=== PATIENT | male | born 1960 | race Caucasian/White ===

== ENCOUNTER 2019-12-14 15:01 | Emergency (ER) | payer OTHER ==
[2019-12-14] MEDS ORDERED: Bacitracin Oint 1 GM U/D Packet TOP ONE (15:55)
--- NOTE | 2019-12-14 16:00 | EDM.PDOC ---
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 He has a deep laceration extending along the dorsal aspect of the hand between the fourth and fifth metacarpal. There is also a small puncture 1 cm wide on the palmar surface of the webspace between the fourth and fifth finger. No other injury. He has no bony tenderness or distal paresthesias of the fingers. Onset: Sudden Duration: Hour(s): (Within the last hour) Location: Reports: Upper Extremity, Left Associated Symptoms: Reports: No Other Symptoms - Related Data Allergies Allergy/AdvReac Type Severity Reaction Status Date / Time No Known Allergies Allergy Verified 12/14/19 15:14 Home Meds: Home Meds NK [No Known Home Meds] 12/14/19 [History] Past Medical History HEENT History: Reports: Impaired Vision - Past Surgical History Head Surgeries/Procedures: Reports: None HEENT Surgical History: Reports: None Dermatological Surgical History: Reports: None Social & Family History - Tobacco Use Tobacco Use Status *Q: Former Tobacco User Used Tobacco, but Quit: Yes Month/Year Tobacco Last Used: 2008 - Caffeine Use Caffeine Use: Reports: Coffee - Recreational Drug Use Recreational Drug Use: No ED ROS GENERAL - Review of Systems Review Of Systems: See Below Constitutional: Denies: Fever, Chills Respiratory: Denies: Shortness of Breath Cardiovascular: Denies: Chest Pain GI/Abdominal: Denies: Nausea, Vomiting Skin: Reports: Other (See HPI) Neurological: Denies: Paresthesia ED EXAM, SKIN/RASH Exam: See Below Exam Limited By: No Limitations General Appearance: Alert, No Apparent Distress Respiratory/Chest: No Respiratory Distress Cardiovascular: Regular Rate, Rhythm Extremities: Other (Exam is otherwise limited to the left hand. The patient has a 4 cm laceration on the dorsal aspect of the hand longitudinally between the fourth and fifth metacarpals. The wound is deep into the soft tissue without bony involvement. There is also a 1 cm laceration on the palmar surface between the fourth and fifth finger near the webspace.) Course - Vital Signs Last Recorded V/S: Last Vital Signs Temp 97.9 F 12/14/19 15:18 Pulse Resp 16 12/14/19 15:18 BP 191/98 H 12/14/19 15:18 Pulse Ox - Orders/Labs/Meds Meds: Medications Discontinued Medications Generic Name Dose Route Start Last Admin Trade Name Nate PRN Reason Stop Dose Admin Bacitracin 1 dose 12/14/19 15:55 12/14/19 16:01 Bacitracin Oint 1 Gm TOP 12/14/19 15:56 1 dose ONETIME ONE Administration - Re-Assessments/Exams Free Text/Narrative Re-Assessment/Exam: 12/14/19 15:58 The wound was anesthetized with lidocaine with epinephrine. It was then flushed thoroughly with saline. Seven 4-0 Ethilon sutures were used to close the dorsal laceration, 2 sutures closed the palmar laceration. Topical bacitracin and dressings were applied and the patient can have the sutures removed in 9 days. Will be placed on cephalexin 500 mg 3 times a day for 7 days because of the depth of the wound which went through and through the hand. Departure - Departure Time of Disposition: 16:07 Disposition: Home, Self-Care 01 Clinical Impression: Laceration of left hand Qualifiers: Encounter type: initial encounter Foreign body presence: without foreign body Qualified Code(s): S61.412A - Laceration without foreign body of left hand, initial encounter - Discharge Information Instructions: Laceration Care, Adult Referrals: PCP,None [Primary Care Provider] - Forms: ED Department Discharge Care Plan Goals: Keep wound covered and clean while healing and take antibiotic as prescribed. Ibuprofen or naproxen will be helpful with pain. Sutures can be removed in 9 days, return sooner if concerns of infection or not healing satisfactorily. Sepsis Event Note (ED) - Evaluation Sepsis Screening Result: No Definite Risk
== END 2019-12-14 16:07 | disposition home or self-care (01) ==
LOC: JP.ED 15:01
DX: S61.412A Laceration without foreign body of left hand, initial encounter (principal); Z87.891 Personal history of nicotine dependence; W23.0XXA Caught, crushed, jammed, or pinched between moving objects, initial encounter
CPT/HCPCS: 12002; 99282-25